=== PATIENT | male | born 1985 | race Caucasian/White ===

== ENCOUNTER 2016-09-20 15:51 | Emergency (ER) | payer OTHER ==
[~2016-09-20] VITALS: Ht 180.3 cm; Wt 79.4 kg
[~2016-09-20 15:51] MED LIST: BENADRYL25 MG PO; LICE CREAM RIN120 ML TOP; TRIAMCINOLONE A15 G1 TOP
[2016-09-20] MEDS ORDERED: IBUPROFEN600 MG PO (16:03)
[2016-09-20] MEDS ORDERED: PENICILLIN V P500 MG PO (16:41)
== END 2016-09-20 16:55 | disposition home or self-care (01) ==
LOC: ED 15:51
DX: K08.89 Other specified disorders of teeth and supporting structures (principal); F17.200 Nicotine dependence, unspecified, uncomplicated; Z88.8 Allergy status to other drugs, medicaments and biological substances
CPT/HCPCS: 99283

== ENCOUNTER 2016-09-29 12:37 | Emergency (ER) | payer OTHER ==
[~2016-09-29 12:37] MED LIST changes: +IBUPROFEN600 MG PO; +PENICILLIN V P500 MG PO
== END 2016-09-29 12:52 | disposition home or self-care (01) ==
LOC: ED 12:37
DX: Z00.8 Encounter for other general examination (principal)